=== PATIENT | female | born 1970 | race Caucasian/White ===

== ENCOUNTER 2018-01-04 13:39 | Emergency (ER) | payer MEDICAID ==
--- NOTE | 2018-01-04 14:33 | EDPHY ---
H & P Time Seen by Provider: 01/04/18 13:59 HPI/ROS: CHIEF COMPLAINT: Vaginal bleeding HISTORY OF PRESENT ILLNESS: 47-year-old female presents to the emergency department with vaginal bleeding. Symptoms began approximately 3 weeks ago. She states her last normal menstrual period was December 17 and has essentially had bleeding since that time. She has had periods of heavy bleeding where she is passing clots. She states that she began bleeding even heavy year old these last few days. She was using a super plus tampon as well as pad and soaking this within 2 hr. She has some mild abdominal cramping. No back pain. She took a home test which was negative. She denies pain in her chest or difficulty breathing. She did have some breast tenderness which has resolved. She states that she has been a number of times. She is 27 para 1 REVIEW OF SYSTEMS: Constitutional: No fever, no chills. Eyes: No double or blurry vision. ENT: No sore throat. Respiratory: No cough, no shortness of breath. Cardiac: No chest pain. Gastrointestinal: As above. No vomiting or diarrhea. Genitourinary: No dysuria. Musculoskeletal: No neck or back pain. Skin: No rashes. Neurological: No headache. Past Medical/Surgical History: 27 para 1 Social History: Single and lives in [place] Smoking Status: Never smoked Physical Exam: General Appearance: Alert, no distress. 147/90, heart rate 83 Eyes: Pupils equal and round. Extraocular motions are all intact. ENT: Mouth: Mucous membranes moist. Respiratory: No wheezing, rhonchi, or rales, lungs are clear to auscultation. Cardiovascular: Regular rate and rhythm. Gastrointestinal: Abdomen is soft and nontender, no masses, no rebound or guarding, bowel sounds normal. Neurological: Alert and oriented x 3, cranial nerves II through XII grossly intact Skin: Warm and dry, no rashes. Musculoskeletal: Nontender to palpate along the cervical, thoracic or lumbar spine. Neck is supple. Extremities: Full range of motion and no peripheral edema. Psychiatric: Patient is oriented X 3, there is no agitation. Constitutional: Initial Vital Signs Temperature (C) 36.7 C 01/04/18 13:42 Heart Rate 83 01/04/18 13:42 Respiratory Rate 18 01/04/18 13:42 Blood Pressure 147/90 H 01/04/18 13:42 O2 Sat (%) 97 01/04/18 13:42 O2 Delivery Mode Room Air Allergies/Adverse Reactions: No Known Allergies Allergy (Unverified 01/04/18 13:42) Home Medications: Medication Instructions Recorded NK [No Known Home Meds] 01/04/18 Medical Decision Making - Diagnostics Imaging Results: Imaging Impressions Pelvic/Renal Ultrasound 01/04/18 14:16 Impression: 1. A central uterine submucosal fibroid deforms the endometrium and is likely responsible for menorrhagia. 2. Small collapsing cyst right ovary. Perhaps this is the source for the patient 's pelvic pain. Results called and discussed with STEWART CASTANEDA, at 01/04/2018 15:35 Imaging: Discussed imaging studies w/ call centre supervisor Radiologist ED Course/Re-evaluation: 47-year-old female presents to the emergency department with heavy vaginal bleeding over last few weeks. Hematocrit was 37.7%. She is hemodynamically stable. On ultrasound she has a 3 cm submucosal fibroid and a 6.5 cm subserosal fibroid. Findings were discussed with the patient. She feels comfortable being discharged home. I did speak with the on-call OBGYN Dr. Alysa Miner, who will see her in follow-up on to recheck. The patient declined any medication. She states that she "does not like things in her body". Differential Diagnosis: Including but not limited to dysfunctional uterine bleeding, uterine fibroids, ovarian cyst, ovarian torsion, urinary tract infection - Data Points Laboratory Results: Laboratory Results 01/04/18 14:30 01/04/18 14:30 01/04/18 01/04/18 01/04/18 14:30 14:30 14:30 WBC 5.44 10^3/uL 10^3/uL (3.80-9.50) RBC 4.13 10^6/uL L 10^6/uL (4.18-5.33) Hgb 12.4 g/dL L g/dL (12.6-16.3) Hct 37.7 % L % (38.0-47.0) MCV 91.3 fL fL (81.5-99.8) MCH 30.0 pg pg (27.9-34.1) MCHC 32.9 g/dL g/dL (32.4-36.7) RDW 14.0 % % (11.5-15.2) Plt Count 283 10^3/uL 10^3/uL (150-400) MPV 9.3 fL fL (8.7-11.7) Neut % (Auto) 60.9 % % (39.3-74.2) Lymph % (Auto) 26.1 % % (15.0-45.0) Davidson % (Auto) 9.0 % % (4.5-13.0) Eos % (Auto) 3.1 % % (0.6-7.6) Baso % (Auto) 0.7 % % (0.3-1.7) Nucleat RBC Rel Count 0.0 % % (0.0-0.2) Absolute Neuts (auto) 3.31 10^3/uL 10^3/uL (1.70-6.50) Absolute Lymphs (auto) 1.42 10^3/uL 10^3/uL (1.00-3.00) Absolute Monos (auto) 0.49 10^3/uL 10^3/uL (0.30-0.80) Absolute Eos (auto) 0.17 10^3/uL 10^3/uL (0.03-0.40) Absolute Basos (auto) 0.04 10^3/uL 10^3/uL (0.02-0.10) Absolute Nucleated RBC 0.00 10^3/uL 10^3/uL (0-0.01) Immature Gran % 0.2 % % (0.0-1.1) Immature Gran # 0.01 10^3/uL 10^3/uL (0.00-0.10) Sodium 138 mEq/L mEq/L (135-145) Potassium 3.5 mEq/L mEq/L (3.3-5.0) Chloride 106 mEq/L mEq/L (97-110) Carbon Dioxide 25 mEq/l mEq/l (22-31) Anion Gap 7 mEq/L L mEq/L (8-16) BUN 15 mg/dL mg/dL (7-23) Creatinine 0.5 mg/dL L mg/dL (0.6-1.0) Estimated GFR > 60 Glucose 103 mg/dL H mg/dL (70-100) Calcium 9.4 mg/dL mg/dL (8.5-10.4) Urine Test Patient ABO/Rh O POSITIVE 01/04/18 13:45 WBC RBC Hgb Hct MCV MCH MCHC RDW Plt Count MPV Neut % (Auto) Lymph % (Auto) Davidson % (Auto) Eos % (Auto) Baso % (Auto) Nucleat RBC Rel Count Absolute Neuts (auto) Absolute Lymphs (auto) Absolute Monos (auto) Absolute Eos (auto) Absolute Basos (auto) Absolute Nucleated RBC Immature Gran % Immature Gran # Sodium Potassium Chloride Carbon Dioxide Anion Gap BUN Creatinine Estimated GFR Glucose Calcium Urine Test NEGATIVE Patient ABO/Rh Departure - Departure Disposition: Home, Routine, Self-Care Clinical Impression: Vaginal bleeding Fibroids Qualifiers: Uterine leiomyoma location: submucous and subserous Qualified Code(s): D25.0 - Submucous leiomyoma of uterus Condition: Good Instructions: Dysfunctional Uterine Bleeding (ED) Additional Instructions: Follow-up with OBGYN this week to recheck. Return to the emergency department if you developed recurring heavy vaginal bleeding, if you feel like your going to pass out, or if you feel worse in any way. Referrals: Alysa Miner DO [Doctor of Osteopathy] - 2-3 days without fail (OBGYN on-call )
[2018-01-04 14:44] LABS: PLATELET COUNT 283 10^3/uL (150-400)
[2018-01-04 16:28] VITALS: BP 139/86
== END 2018-01-04 16:28 | disposition home or self-care (01) ==
LOC: EDBD 13:39
DX: N93.9 Abnormal uterine and vaginal bleeding, unspecified (principal); D25.0 Submucous leiomyoma of uterus